=== PATIENT | female | born 1955 | race Caucasian/White ===

== ENCOUNTER → 2017-09-21 | Outpatient (CLI) | payer OTHER ==
[~2017-09-21] MED LIST: ALLEGRA180 MG; APAP/CODEINE ELI5 ML PO; ATIVAN0.5 MG PO; AUGMENTIN 875875 M1 PO; B-100 COMPLEX1 EAC1; DIAZEPAM 5 MG5 MG PO; FLONASE 0.05%50 MCG; FLOXIN OTI0.3 %/5 M1; LISINOPRIL10 MG; MECLIZINE 25 MG25 M1 PO; NEXIUM40 MG PO; PERCOCET 5-3251 EACH PO; PRILOSEC 20 MG20 MG; SYMBICORT80 MCG/4.1; VITAMIN D-32000 UNIT; VITCB500GO; ZPAK PO
== END ==
LOC: M.ULTRA 14:33
DX: E04.1 Nontoxic single thyroid nodule (principal); R22.41 Localized swelling, mass and lump, right lower limb; R22.1 Localized swelling, mass and lump, neck

== ENCOUNTER → 2017-09-30 | Outpatient (CLI) | payer OTHER ==
[2017-09-30 11:40] LABS: CREATININE 0.7 mg/dL (0.6-1.3)
== END ==
LOC: M.LAB 09:54 → M.CT 11:00
PROVIDERS: Family Medicine
DX: R22.1 Localized swelling, mass and lump, neck (principal); M54.2 Cervicalgia

== ENCOUNTER → 2017-10-26 | Outpatient (CLI) | payer OTHER | LOC: M.RAD 13:21 | DX: Z12.31 Encounter for screening mammogram for malignant neoplasm of breast (principal) ==

== ENCOUNTER → 2017-10-27 | Outpatient (CLI) | payer OTHER | LOC: M.RAD 16:32 | DX: M79.671 Pain in right foot (principal) ==

== ENCOUNTER → 2017-11-09 | Outpatient (CLI) | payer OTHER | LOC: M.MRI 06:54 | DX: M19.071 Primary osteoarthritis, right ankle and foot (principal); M77.31 Calcaneal spur, right foot; M25.774 Osteophyte, right foot; M65.871 Other synovitis and tenosynovitis, right ankle and foot ==

== ENCOUNTER → 2019-02-06 | Outpatient (CLI) | payer OTHER | END | disposition home or self-care (01) | LOC: M.RAD 12:38 | DX: M19.071 Primary osteoarthritis, right ankle and foot (principal); I10 Essential (primary) hypertension; Z98.890 Other specified postprocedural states; Z91.041 Radiographic dye allergy status; Z88.8 Allergy status to other drugs, medicaments and biological substances; Z79.899 Other long term (current) drug therapy ==